=== PATIENT | male | born 1955 | race Caucasian/White ===

== ENCOUNTER 2018-12-15 10:52 | Day surgery (SDC) | payer OTHER ==
--- NOTE | 2018-12-14 15:40 | RAD REPORT ---
EXAM DESCRIPTION: RAD - Chest Pa And Lat (2 Views) - 12/14/2018 2:52 pm CLINICAL HISTORY: preop Chest pain. COMPARISON: <Comparisons> FINDINGS: The lungs are clear. The heart is normal in size. No displaced fractures. IMPRESSION: No acute or concerning finding suspected.
--- NOTE | 2018-12-14 16:44 | EKG ---
Test Date: 2018-12-14 Test Time: 14:49:19 Soil Technician: ALDO MEASUREMENT RESULTS: Intervals: Rate: 100 PA: 184 QRSD: 106 QT: 366 QTc: 472 [place]: P: 48 PA: 184 QRS: -4 T: 22 INTERPRETIVE STATEMENTS: Normal sinus rhythm Septal infarct, age undetermined Abnormal ECG No previous ECG available for comparison Electronically Signed On 12-14-18 16:43:13 [employer]OLSMITH by Terry Lo
[2018-12-14 16:45] LABS: Absolute Lymphocytes (CBC) 1.6 K/uL (0.7-4.9); Absolute Monocytes 0.4 K/uL (0.1-1.3); Absolute Neutrophil 2.9 K/uL (1.8-8.0); Basophils % 1.1 % (0-1.3); Eosinophils % 2.6 % (0-4.4); Hematocrit 44.1 % (39.6-49.0); MPV 9.6 fL (7.6-11.3); Monocytes % 8.7 % (3.3-12.3)
[2018-12-15] MEDS ORDERED: Ringers Lactate 1,000 ML IV ONE ×2 (11:20→16:22)
[2018-12-15] MEDS ORDERED: CEFAZOLIN/SWI 1gm 1 GM/10 ML SYR ONE (11:21)
[2018-12-15] MEDS ORDERED: FENTANYL CITR 100 MCG/2 ML ONE ×2 (13:18→14:05)
[2018-12-15] MEDS ORDERED: LIDOCAINE 2% MPF 5 ML VIAL ONE (13:18)
[2018-12-15] MEDS ORDERED: MIDAZOLAM HCL 2 MG/2 ML INJ ONE (13:18)
[2018-12-15] MEDS ORDERED: ONDANSETRON 4 MG/2 ML VIAL ONE (13:18)
[2018-12-15] MEDS ORDERED: PROPOFOL 200 MG/20 ML VIAL IV ONE (13:18)
[2018-12-15] MEDS: FENTANYL CITR 100 MCG/2 ML ONE ×4 (15:44→16:03)
[2018-12-15] MEDS ORDERED: KETOROLAC 30 MG/ML INJ ONE (16:05)
[2018-12-15] MEDS: MEPERIDINE HCL 50 MG/ML AMP ONE ×2 (16:15→16:20)
--- NOTE | 2018-12-15 16:15 | RAD REPORT ---
EXAM DESCRIPTION: RAD - Wrist Right 2 View - 12/15/2018 3:34 pm CLINICAL HISTORY: Right wrist surgery FINDINGS: One fluoroscopic spot image is submitted. Fluoroscopy time 0 minutes. Frontal image of the wrist obtained. Surgery performed by . Refer to his report for findings
[2018-12-15] MEDS ORDERED: CODEINE 30MG/APAP 300MG TAB ONE (17:22)
--- NOTE | 2018-12-19 08:00 | OP ---
Surgeon: Cl Hurd MD Preoperative Diagnosis: Status post scapholunate fracture dislocation with deformity. Postoperative Diagnosis: Status post scapholunate fracture dislocation with deformity. Procedure Performed: Proximal carpectomy, splint. Anesthesia: General. Procedure In Detail: After satisfactory induction of general anesthesia, the right hand was prepped with DuraPrep, dry sterile drapes applied in the usual manner. Arm was elevated, exsanguinated with Esmarch. Tourniquet was inflated to 250 mmHg. Hand placed on [place] table. A V-shaped incision wa s placed over the right wrist, extended proximally and distally, dissected down through skin, subcuta neous tissue. The dissection proceeded down to the fourth compartment, was opened, and the tendons r etracted ulnarly. We then dissected down transversely to the ligaments of the wrist dorsally. These were incised transversely and dissection proceeded down. C-arm revealed correct positioning. The c apsule was identified. The base of the . The patient then underwent removal of the lunate and scaphoid and triquetrum. The patient then had the wounds irrigated. Tourniquet released. Elec trocautery used for hemostasis. The wrist ligaments were closed with 2-0 Mersilene. The fourth comp artment was closed with 4-0 Mersilene and then the skin closed with 4-0 Prolene vertical mattress and half buried mattress simple sutures. Dressing of Xeroform, 2-inch Leigh, Kerlix, and a splint to hold the wrist in degrees. The patient tolerated the procedure well and returned to [facility]. ANIBAL/BEATA Voice ID: [id number] Report ID: [id number]
== END 2018-12-15 17:30 | disposition home or self-care (01) ==
LOC: OR 10:52
PROVIDERS: ATTEND Specialist
PROC: 0PTM0ZZ Resection of Right Carpal, Open Approach (ICD-10-PCS; 2018-12-15)
PROC: 0PTM0ZZ Resection of Right Carpal, Open Approach (ICD-10-PCS; 2018-12-15)
PROC: 0PTM0ZZ Resection of Right Carpal, Open Approach (ICD-10-PCS; principal; 2018-12-15 12:45)
DX: S62.001A Unspecified fracture of navicular [scaphoid] bone of right wrist, initial encounter for closed fracture (principal); S62.121A Displaced fracture of lunate [semilunar], right wrist, initial encounter for closed fracture; X58.XXXA Exposure to other specified factors, initial encounter
CPT/HCPCS: 25210 ×3; 36415; 71046; 73100; 85025; 88304; 88311; 93005; J0690; J2175; J2250; J2405; J2704; J3010 ×4; 88305